=== PATIENT | male | born 1955 | race Caucasian/White ===

== ENCOUNTER 2019-08-01 21:20 | Emergency (ER) | payer OTHER ==
[2019-08-01 21:27] VITALS: BP 148/75; PULSE 61; TEMP 98; BMI 26.5
--- NOTE | 2019-08-02 02:19 | PDOC ---
Documentation entered by Ninfa Da Silva SCRIBE, acting as scribe for Clary Orta MD. Clary Orta MD: This documentation has been prepared by the Avinash murillo Aiswarya, SCRIBE, under my direction and personally reviewed by me in its entirety. I confirm that the documentation accurately reflects all work, treatment, procedures, and medical decision making performed by me. History of Present Illness - General Chief Complaint: Pain Stated Complaint: L WRIST/SHOULDER PAIN Time Seen by Provider: 08/01/19 21:23 History Source: Patient Exam Limitations: No Limitations - History of Present Illness Initial Comments: 08/01/19 22:04 The patient is a 63 year old male, with a significant PMH of diabetes and high blood pressure, who presents to the emergency department complaining of left shoulder pain s/p fall that occurred yesterday. The patient states he was at [facility] when the chair he was sitting on broke injuring his left shoulder. He currently endorses pain to the right shoulder, elbow, back and hip , no relief with ice. Patient notes hip pain is exacerbated on ambulation. The patient denies numbness or tingling. Denies any head trauma, altered mental status, or vision changes. Denies any other trauma. Allergies: NKDA Past surgical history: None reported Social history: None reported PCP:Samy Neff Past History - Past Medical History Allergies/Adverse Reactions: Allergies Allergy/AdvReac Type Severity Reaction Status Date / Time No Known Allergies Allergy Unverified 08/01/19 21:27 Home Medications: Ambulatory Orders Aspirin [ASA -] 81 mg PO DAILY 08/01/19 Metformin HCl [Glucophage] 500 mg PO BID 08/01/19 Metoprolol Succinate [Toprol Xl] 100 mg PO DAILY 08/01/19 Valsartan [Diovan] 40 mg PO DAILY 08/01/19 COPD: No Diabetes: Yes HTN: Yes - Psycho Social/Smoking Cessation Hx Smoking History: Unknown if ever smoked Have you smoked in the past 12 months: No Number of Cigarettes Smoked Daily: 0 Information on smoking cessation initiated: No Hx Alcohol Use: No Drug/Substance Use Hx: No Review of Systems - Review of Systems Able to Perform ROS?: Yes Comments:: 08/01/19 22:06 GENERAL/CONSTITUTIONAL: No fever or chills. No weakness. HEAD, EYES, EARS, NOSE AND THROAT: No change in vision. No ear pain or discharge. No sore throat. CARDIOVASCULAR: No chest pain or shortness of breath. MUSCULOSKELETAL:+left shoulder pain . SKIN: No rash NEUROLOGIC: No headache, vertigo, loss of consciousness, or change in strength/ sensation. HEMATOLOGIC/LYMPHATIC: No anemia, easy bleeding, or history of blood clots. ALLERGIC/IMMUNOLOGIC: No hives or skin allergy. *Physical Exam - Vital Signs Last Vital Signs Temp Pulse Resp BP Pulse Ox 98 F 61 14 148/75 97 08/01/19 21:24 08/01/19 21:24 08/01/19 21:24 08/01/19 21:24 08/01/19 21:24 - Physical Exam 08/01/19 22:11 GENERAL: Awake, alert, and fully oriented, in no acute distress HEAD: No signs of trauma NECK: Normal ROM, supple, no lymphadenopathy, JVD, or masses LUNGS: Breath sounds equal, clear to auscultation bilaterally. No wheezes, and no crackles HEART: Regular rate and rhythm, normal S1 and S2, no murmurs, rubs or gallops EXTREMITIES: +mild tenderness without edema to the proximal portion of the left upper arm. Moderate edema dorsum of the wrist and proximal hand with some faint ecchymosis. No deformity. Pain to the left wrist on supination and pronation. No other abnormality. NEUROLOGICAL: Normal speech. SKIN: Warm, Dry, normal turgor, no rashes or lesions noted. ED Treatment Course - RADIOLOGY Radiology Studies Ordered: Category Date Time Status PELVIS [RAD] Stat Radiology 08/01/19 21:41 Taken SHOULDER-LEFT [RAD] Stat Radiology 08/01/19 21:41 Taken WRIST W/HAND-LEFT* [RAD] Stat Radiology 08/01/19 21:41 Taken Discharge - Discharge Information Problems reviewed: Yes Clinical Impression/Diagnosis: Left wrist sprain Qualifiers: Encounter type: initial encounter Qualified Code(s): S63.502A - Unspecified sprain of left wrist, initial encounter Contusion of left shoulder Qualifiers: Encounter type: initial encounter Qualified Code(s): S40.012A - Contusion of left shoulder, initial encounter Contusion of pelvis Qualifiers: Encounter type: initial encounter Qualified Code(s): S30.0XXA - Contusion of lower back and pelvis, initial encounter Condition: Stable Disposition: HOME - Follow up/Referral Referrals: Samy Neff MD [Primary Care Provider] - Demetri Engel MD [Staff Physician] - 7 days - Patient Discharge Instructions Patient Printed Discharge Instructions: DI for Wrist Sprain Additional Instructions: ice/elevation of left wrist for the next day madelin wrap during day to left wrist for the next week Tylenol/Motrin as needed for pain Followup with orthopedist(Dr Engel/Dr Harris) if pain persists for more than one week - Post Discharge Activity
== END 2019-08-01 23:16 | disposition home or self-care (01) ==
LOC: FER 21:20
DX: M25.532 Pain in left wrist (principal); E11.9 Type 2 diabetes mellitus without complications; I10 Essential (primary) hypertension
CPT/HCPCS: 72170-TC-FY; 73030-TC-LT-FY; 73110-TC-LT-FY; 73130-TC-LT-FY; 99282-25

== ENCOUNTER 2022-02-26 04:43 | Day surgery (SDC) | payer OTHER ==
[2022-02-25 14:42] VITALS: BMI 28.8
[2022-02-26 10:06] VITALS: BP 169/70; PULSE 58; TEMP 98
== END 2022-02-26 10:06 | disposition home or self-care (01) ==
LOC: JASU-ENDO 04:43
PROVIDERS: ATTEND Internal Medicine Gastroenterology
PROC: 0DBM8ZX Excision of Descending Colon, Via Natural or Artificial Opening Endoscopic, Diagnostic (ICD-10-PCS; 2022-02-26)
PROC: 0DB68ZX Excision of Stomach, Via Natural or Artificial Opening Endoscopic, Diagnostic (ICD-10-PCS; 2022-02-26)
PROC: 0DBH8ZX Excision of Cecum, Via Natural or Artificial Opening Endoscopic, Diagnostic (ICD-10-PCS; principal; 2022-02-26 08:00)
DX: C83.33 Diffuse large B-cell lymphoma, intra-abdominal lymph nodes (principal); D64.9 Anemia, unspecified; D12.0 Benign neoplasm of cecum; D12.4 Benign neoplasm of descending colon; A04.8 Other specified bacterial intestinal infections; E11.9 Type 2 diabetes mellitus without complications; I10 Essential (primary) hypertension
CPT/HCPCS: 88305-TC; 88342-TC

== ENCOUNTER 2022-12-07 04:36 | Day surgery (SDC) | payer OTHER ==
[2022-12-03 12:11] VITALS: BMI 26.6
[2022-12-07 10:49] VITALS: BP 157/71; PULSE 63; RESP 16
[2022-12-07 14:11] VITALS: TEMP 97.1
== END 2022-12-07 11:50 | disposition home or self-care (01) ==
LOC: JASU-ENDO 04:36
PROVIDERS: ATTEND Student in an Organized Health Care Education/Training Program
PROC: 0DB78ZX Excision of Stomach, Pylorus, Via Natural or Artificial Opening Endoscopic, Diagnostic (ICD-10-PCS; 2022-12-07)
PROC: 0DB68ZX Excision of Stomach, Via Natural or Artificial Opening Endoscopic, Diagnostic (ICD-10-PCS; 2022-12-07)
PROC: 0DB48ZX Excision of Esophagogastric Junction, Via Natural or Artificial Opening Endoscopic, Diagnostic (ICD-10-PCS; principal; 2022-12-07 11:30)
DX: K29.50 Unspecified chronic gastritis without bleeding (principal); K21.00 Gastro-esophageal reflux disease with esophagitis, without bleeding; K31.A0 Gastric intestinal metaplasia, unspecified; Z85.01 Personal history of malignant neoplasm of esophagus
CPT/HCPCS: 82962; 88305-TC; 88342-TC

== ENCOUNTER 2023-03-01 05:11 | Day surgery (SDC) | payer OTHER ==
[2023-03-01 07:33] VITALS: BMI 26.4
[2023-03-01 09:23] VITALS: TEMP 97.5
[2023-03-01 09:26] VITALS: BP 172/72; PULSE 69; RESP 20
== END 2023-03-01 09:28 | disposition home or self-care (01) ==
LOC: JASU-ENDO 05:11
PROVIDERS: ATTEND Student in an Organized Health Care Education/Training Program
PROC: 0DB68ZX Excision of Stomach, Via Natural or Artificial Opening Endoscopic, Diagnostic (ICD-10-PCS; principal; 2023-03-01 08:30)
DX: Z08 Encounter for follow-up examination after completed treatment for malignant neoplasm (principal); Z85.72 Personal history of non-Hodgkin lymphomas; K29.50 Unspecified chronic gastritis without bleeding
CPT/HCPCS: 88305-TC; 88342-TC

== ENCOUNTER 2023-07-29 04:45 | Day surgery (SDC) | payer OTHER ==
[2023-07-26 14:16] VITALS: BMI 26.4
[2023-07-29 09:21] VITALS: TEMP 97.8
[2023-07-29 09:46] VITALS: BP 168/70; PULSE 58; RESP 17
== END 2023-07-29 10:20 | disposition home or self-care (01) ==
LOC: JASU-ENDO 04:45
PROVIDERS: ATTEND Student in an Organized Health Care Education/Training Program
PROC: 0DB78ZX Excision of Stomach, Pylorus, Via Natural or Artificial Opening Endoscopic, Diagnostic (ICD-10-PCS; 2023-07-29)
PROC: 0DB68ZX Excision of Stomach, Via Natural or Artificial Opening Endoscopic, Diagnostic (ICD-10-PCS; principal; 2023-07-29 08:00)
DX: Z13.810 Encounter for screening for upper gastrointestinal disorder (principal); K29.50 Unspecified chronic gastritis without bleeding
CPT/HCPCS: 82962; 88305-TC; 88342-TC

== ENCOUNTER 2024-04-27 04:15 | Day surgery (SDC) | payer OTHER ==
[2024-04-25 09:04] VITALS: BMI 27.3
[2024-04-27 08:51] VITALS: TEMP 97.7
[2024-04-27 09:37] VITALS: BP 160/76; PULSE 50; RESP 10
== END 2024-04-27 09:38 | disposition home or self-care (01) ==
LOC: JASU-ENDO 04:15
PROVIDERS: ATTEND Student in an Organized Health Care Education/Training Program
PROC: 0DB68ZX Excision of Stomach, Via Natural or Artificial Opening Endoscopic, Diagnostic (ICD-10-PCS; 2024-04-27)
PROC: 0DB78ZX Excision of Stomach, Pylorus, Via Natural or Artificial Opening Endoscopic, Diagnostic (ICD-10-PCS; 2024-04-27)
PROC: 0DJD8ZZ Inspection of Lower Intestinal Tract, Via Natural or Artificial Opening Endoscopic (ICD-10-PCS; principal; 2024-04-27 08:00)
DX: Z12.11 Encounter for screening for malignant neoplasm of colon (principal); K29.50 Unspecified chronic gastritis without bleeding; K64.0 First degree hemorrhoids; Z86.010 Personal history of colon polyps; Z85.72 Personal history of non-Hodgkin lymphomas
CPT/HCPCS: 43239; G0121; 82962; 88305-TC; 88342-TC